=== PATIENT | female | born 2000 | race Caucasian/White ===

== ENCOUNTER 2022-10-28 03:01 | Emergency (ER) | payer OTHER ==
[2022-10-28 03:05] VITALS: BP 118/67
--- NOTE | 2022-10-28 03:38 | ERPHSYRPT ---
- History of Present Illness Time Seen by Provider: 10/28/22 03:34 Source: patient Exam Limitations: no limitations Patient Subjective Stated Complaint: family stated that pt's son had choked at home and pt was very scared. Triage Nursing Assessment: pt ambulated to room with assistance from family. pt is crying, and hyperventilating, and unable to speak. pt's family states she is 5 months . FHT 150 bpm, with movement heard and felt Physician History: Patient is a 22-year-old female currently 5 months presents to our ED experiencing a panic attack. Patient hyperventilating. Symptoms started after she observed her son choke on a watermelon. Patient's son became cyanotic. The family was able to dislodge the watermelon from the patient's throat. Patient is now back at his baseline. Patient has not one of our patients. Patient is at home with grand mother. Our patient eventually calm down. Patient's significant other at bedside. Patient denies chest pain or shortness of breath. No nausea vomiting or diaphoresis. heart tones 150-160. movement observed. Patient has no complaints regarding her . No vaginal discharge. No pelvic pain. Patient calm down and is now requesting discharge. Physical exam essentially unremarkable. Timing/Duration: today Severity: moderate Modifying Factors: Improves With: nothing Associated Symptoms: denies symptoms Home Medications: Sertraline HCl 50 mg [Zoloft 50 mg Tablet] 50 mg PO HS 10/28/22 [History] Hx Tetanus, Diphtheria Vaccination/Date Given: No Travel Risk - International Travel Have you traveled outside of the country in past 3 weeks: No - Coronavirus Screening Are you exhibiting any of the following symptoms?: No Close contact with a COVID-19 positive Pt in past 14-21 Days: No - Vaccine Status Have you recieved a Covid-19 vaccination: Yes [employer] Supervisor: [employer] - Review of Systems Constitutional: No Symptoms, No Fever, No Chills Eyes: No Symptoms Ears, Nose, & Throat: No Symptoms Respiratory: No Symptoms, No Cough, No Dyspnea Cardiac: No Symptoms, No Chest Pain, No Edema, No Syncope Abdominal/Gastrointestinal: No Symptoms, No Abdominal Pain, No Nausea, No Vomiting, No Diarrhea Genitourinary Symptoms: No Symptoms, No Dysuria Musculoskeletal: No Symptoms, No Back Pain, No Neck Pain Skin: No Symptoms, No Rash Neurological: No Symptoms, No Dizziness, No Focal Weakness, No Sensory Changes Psychological: No Symptoms Endocrine: No Symptoms Hematologic/Lymphatic: No Symptoms Immunological/Allergic: No Symptoms All Other Systems: Reviewed and Negative - Past Medical History Pertinent Past Medical History: No - Past Surgical History Past Surgical History: No - Social History Smoking Status: Never smoker Exposure to second hand smoke: No Drug Use: none Patient Lives Alone: No - Female History Hx Now: Yes Gestational Age: 26 - Nursing Vital Signs Nursing Vital Signs: Initial Vital Signs Temperature 98.0 F 10/28/22 03:02 Pulse Rate 83 10/28/22 03:02 Respiratory Rate 38 H 10/28/22 03:02 Blood Pressure 118/67 10/28/22 03:02 O2 Sat by Pulse Oximetry 99 10/28/22 03:02 Pain Scale Pain Intensity 0 - Physical Exam General Appearance: alert, other (Patient is tearful and hyperventilating.) Eye Exam: PERRL/EOMI, eyes nml inspection Ears, Nose, Throat Exam: normal ENT inspection, TMs normal, pharynx normal, moist mucous membranes Neck Exam: normal inspection, non-tender, supple, full range of motion Respiratory Exam: normal breath sounds, lungs clear, airway intact, No respiratory distress Cardiovascular Exam: regular rate/rhythm, normal heart sounds, normal peripheral pulses Gastrointestinal/Abdomen Exam: soft, normal bowel sounds, No tenderness, No mass Back Exam: normal inspection, normal range of motion, No CVA tenderness, No vertebral tenderness Extremity Exam: normal inspection, normal range of motion, pelvis stable Neurologic Exam: alert, oriented x 3, cooperative, normal mood/affect, nml cerebellar function, nml station & gait, sensation nml, No motor deficits Skin Exam: normal color, warm, dry, No rash Lymphatic Exam: No adenopathy SpO2 Interpretation: normal SpO2: 99 O2 Delivery: Room Air - Course Nursing assessment & vital signs reviewed: Yes - Progress Progress: improved Progress Note: Patient is a 22-year-old female currently 5 months presents to our ED experiencing a panic attack. Patient is very anxious at this time. Patient observed her younger child choked and became cyanotic. Patient's son choked on a watermelon. The watermelon was removed from patient's throat. She reports that he is now fine and with the grandmother. Patient significant other presented to our ED. Patient is now calm. Patient has no symptoms. No chest pain or shortness of breath. heart tones obtained. heart tones are 1 50-1 60. movement observed. We contacted patient's SUPERVISOR OF GUIDANCE AND TESTING physician to inform him that his patient had arrived to our ED. He agrees with our disposition at discharge. Complexity of problems addressed is low. Acute uncomplicated illness. No critical care time. Complexity of data reviewed and analyzed is none. Risk of complication and or morbidity/mortality of patient management is minimal. Symptoms resolved after some time and comfort measures. No medicinal management required. Patient states he is ready for discharge. Will discharge home at this time with her significant other. Patient agrees to follow-up with their primary care doctor within 48 hours for reevaluation. Vital stable. Discharge diagnosis is anxiety. Portions of this note were created with voice recognition technology. There may be grammatical, spelling, punctuation or sound alike errors 10/28/22 03:38 Patient has no primary care doctor on record. Service Dr. At this time is Dr. Smith. Patient given a referral to Dr. Smith. 10/28/22 03:43 Discussed with DrHeather: Dania Will see patient in: office Counseled pt/family regarding: diagnosis, need for follow-up - Departure Departure Disposition: Home Clinical Impression: Anxiety Condition: Stable Critical Care Time: No Referrals: DOCTOR,NO FAMILY [Primary Care Provider] - Follow up/PCP as directed SHAI SMITH MD [ACTIVE STAFF] - Follow up/PCP as directed Additional Instructions: Discharge/Care Plan DOMINICBRAYDEN BARRETT was seen on 10/28/22 in the Emergency Room. The patient was counseled regarding Diagnosis,Lab results, Imaging studies, need for follow up and when to return to the Emergency Room. Prescriptions given: Discharge Note I have spoken with the patient and/or caregivers. I have explained the patient's condition, diagnosis and treatment plan based on the information available to me at this time. I have answered the patient's and/or caregiver's questions and addressed any concerns. The patient and/or caregivers have as good understanding of the patient's diagnosis, condition and treatment plan as can be expected at this point. The vital signs have been stable. The patient's condition is stable and appropriate for discharge from the emergency department. The patient will pursue further outpatient evaluation with the primary care physician or other designated or consulting physician as outlined in the discharge instructions. The patient and/or caregivers are agreeable to this plan of care and follow-up instructions have been explained in detail. The patient and/or caregivers have received these instruction. The patient/and or caregivers are aware that any significant change in condition or worsening of symptoms should prompt an immediate return to this or the closest emergency department or call 911.
[2022-10-28 03:56] VITALS: PULSE 79; O2SAT 98
== END 2022-10-28 03:56 | disposition home or self-care (01) ==
LOC: ED 03:01
DX: F41.9 Anxiety disorder, unspecified (principal); F43.0 Acute stress reaction; Z79.899 Other long term (current) drug therapy; Z33.1 Pregnant state, incidental
CPT/HCPCS: 99281

== ENCOUNTER 2023-01-01 01:26 | Observation (INO) | payer OTHER ==
[2023-01-01 02:01] LABS: Appearance Clear (Clear); Bacteria Rare /HPF (None Seen); Bilirubin Negative (Negative); Blood Negative (Negative); Epithelial Cells Moderate /HPF (None Seen); Glucose, Urine Negative (Negative); Hyaline Casts NONE SEEN /LPF (0-2); Ketones 40 (Negative); Leukocyte Esterase Moderate (Negative); Nitrite Negative (Negative); Ph 6.5 (4.6-8.0); Protein,Urine Dip Trace (Negative); RBC 0-2 /HPF (0-5); WBC 21-50 /HPF (0-5)
[2023-01-01 02:08] LABS: ADD URINE CULTURE? YES (NO)
[2023-01-01 02:12] VITALS: O2SAT 98
[2023-01-01 02:12] LABS: Amphetamine,Urine NEGATIVE (NEGATIVE); Barbiturate,Urine NEGATIVE (NEGATIVE); Benzodiazepine,Urine NEGATIVE (NEGATIVE); Cocaine,Urine NEGATIVE (NEGATIVE); Methadone,Urine NEGATIVE (NEGATIVE); Opiate,Urine NEGATIVE (NEGATIVE); PCP,Urine NEGATIVE (NEGATIVE); THC,Urine NEGATIVE (NEGATIVE)
[2023-01-01 03:06] VITALS: BP 105/61; PULSE 71
== END 2023-01-01 02:51 | disposition home or self-care (01) ==
LOC: OB 01:26
PROVIDERS: ADMIT Obstetrics & Gynecology; ATTEND Obstetrics & Gynecology
DX: Z34.83 Encounter for supervision of other normal pregnancy, third trimester (principal); Z3A.34 34 weeks gestation of pregnancy
CPT/HCPCS: 80307; 81001; 87086; G0378; G0379

== ENCOUNTER 2023-02-02 08:30 | Observation (INO) | payer OTHER ==
[2023-02-02 09:13] VITALS: BP 140/77; PULSE 70; O2SAT 100
[2023-02-02] MEDS ORDERED: Lactated Ringers 1,000 ML IV ONE (09:50)
[2023-02-02 10:37] LABS: ADD URINE CULTURE? YES (NO); Appearance Clear (Clear); Bacteria None Seen /HPF (None Seen); Bilirubin Negative (Negative); Blood Negative (Negative); Epithelial Cells None Seen /HPF (None Seen); Glucose, Urine Negative (Negative); Hyaline Casts NONE SEEN /LPF (0-2); Ketones Negative (Negative); Leukocyte Esterase Negative (Negative); Nitrite Negative (Negative); Ph 6.5 (4.6-8.0); Protein,Urine Dip 100 (Negative); RBC 0-2 /HPF (0-5); Specific Gravity 1.015 (1.005-1.030); WBC 0-2 /HPF (0-5)
== END 2023-02-02 12:15 | disposition home or self-care (01) ==
LOC: OB 08:30
PROVIDERS: ADMIT Obstetrics & Gynecology; ATTEND Obstetrics & Gynecology
DX: Z34.83 Encounter for supervision of other normal pregnancy, third trimester (principal); Z3A.38 38 weeks gestation of pregnancy
CPT/HCPCS: 81001; 87086; G0378; G0379

== ENCOUNTER 2023-02-02 14:17 | Inpatient (IN) | payer OTHER ==
[~2023-02-02 14:17] MED LIST: PITOCIN 30 UNITS/ LR 500 ML 30 UNITS/500 ML PLAST..BAG IV SCH; ZOLOFT 50 MG TABLET PO SCH
[2023-02-02] MEDS ORDERED: PITOCIN 30 UNITS/ LR 500 ML 500 ML IV ONE (14:24)
[2023-02-02] MEDS ORDERED: TUCKS TP PRN (14:45)
[2023-02-02] MEDS ORDERED: CORTISONE 1% CREAM TP PRN (14:45)
[2023-02-02] MEDS ORDERED: Dulcolax 10 MG SUPP PR PRN (14:45)
[2023-02-02] MEDS ORDERED: Anucort-HC SUPPOSITORY PR PRN (14:45)
[2023-02-02] MEDS ORDERED: NORCO 5/325 MG PO PRN (14:45)
[2023-02-02] MEDS ORDERED: Mylicon 80MG PO PRN (14:45)
[2023-02-02] MEDS ORDERED: Dermoplast Spray TP PRN (14:45)
[2023-02-02] MEDS ORDERED: LANSINOH 40 GM TOP PRN (14:45)
[2023-02-02 15:16] LABS: Absolute Neutrophil Ct (ANC) 12.25 x10^3/uL (1.4-6.9); BASOPHIL % 0.1 % (0.0-0.4); Basophil (Absolute #) 0.02 x10^3/uL (0-0.4); Eosinophil (Absolute #) 0 x10^3/uL (0-0.5); Hematocrit 26.2 % (35-47); Hemoglobin 7.9 g/dL (12.0-16.0); IMMATURE GRAN # 0.08 x10^3u/L (0.00-0.03); IMMATURE GRAN % 0.6 % (0.00-0.4); Lymphocyte (Absolute #) 0.94 x10^3/uL (1.0-4.6); Lymphocytes % 6.8 % (24.0-44.0); Mean Cell Volume 87.3 fL (78-100); Mean Corpuscular Hemoglobin 26.3 pg (26-32); Mean Corpuscular Hgb Concent. 30.2 g/dL (32-36); Monocyte (Absolute #) 0.52 x10^3/uL (0.0-1.3); Monocytes % 3.8 % (0.0-12.0); Neutrophil % 88.7 % (36.0-66.0); Platelet Count 167 x10^3/uL (150-450); Red Cell Distribution Width 13.4 % (11.5-14.0); White Blood Count 13.8 x10^3/uL (4.0-10.5)
[2023-02-02] MEDS: MOTRIN 400 MG PO PRN ×2 (15:19→23:47)
[2023-02-02 16:06] LABS: ABO TYPING AB; Antibody Screen NEGATIVE (NEGATIVE); RH TYPING POSITIVE
[2023-02-02] MEDS: TYLENOL EXTRA STRENGTH 500 MG PO PRN (16:30)
[2023-02-02 16:36] LABS: Amphetamine,Urine NEGATIVE (NEGATIVE); Barbiturate,Urine NEGATIVE (NEGATIVE); Benzodiazepine,Urine NEGATIVE (NEGATIVE); Cocaine,Urine NEGATIVE (NEGATIVE); Methadone,Urine NEGATIVE (NEGATIVE); Opiate,Urine NEGATIVE (NEGATIVE); PCP,Urine NEGATIVE (NEGATIVE); THC,Urine NEGATIVE (NEGATIVE)
[2023-02-02] MEDS ORDERED: Sodium Chloride 0.9% 500 ML 500 ML IV SCH (17:00)
[2023-02-02 18:26] LABS: CROSS MATCH (PRBC) COMPATIBLE (COMPATIBLE)
[2023-02-02] MEDS ORDERED: AMMONIA AROMATIC IH ONE (20:55)
[2023-02-02] MEDS: Docusate Sodium 100 MG PO SCH (22:00)
[2023-02-02] MEDS ORDERED: Lactated Ringers 1,000 ML IV SCH (23:45)
[2023-02-03 00:51] LABS: Hematocrit 28.8 % (35-47); Hemoglobin 9.3 g/dL (12.0-16.0); Mean Corpuscular Hemoglobin 27.8 pg (26-32); Mean Corpuscular Hgb Concent. 32.3 g/dL (32-36); Mean Platelet Volume 11.9 fL (7.5-11.0); Platelet Count 155 x10^3/uL (150-450); Red Blood Count 3.35 x10^6/uL (4.1-5.4); Red Cell Distribution Width 13.4 % (11.5-14.0); White Blood Count 13.1 x10^3/uL (4.0-10.5)
[2023-02-03] MEDS: TYLENOL EXTRA STRENGTH 500 MG PO PRN ×2 (02:31→10:05)
[2023-02-03] MEDS: ZOLOFT 50 MG TABLET PO SCH (02:31)
[2023-02-03] MEDS: MOTRIN 400 MG PO PRN ×2 (07:21→15:08)
[2023-02-03 07:30] LABS: Absolute Neutrophil Ct (ANC) 9.09 x10^3/uL (1.4-6.9); BASOPHIL % 0.3 % (0.0-0.4); Basophil (Absolute #) 0.04 x10^3/uL (0-0.4); Eosinophil % 0.2 % (0.00-5.0); Eosinophil (Absolute #) 0.03 x10^3/uL (0-0.5); Hematocrit 26.9 % (35-47); Hemoglobin 8.5 g/dL (12.0-16.0); IMMATURE GRAN # 0.09 x10^3u/L (0.00-0.03); IMMATURE GRAN % 0.7 % (0.00-0.4); Lymphocyte (Absolute #) 3.14 x10^3/uL (1.0-4.6); Lymphocytes % 23.3 % (24.0-44.0); Mean Cell Volume 86.8 fL (78-100); Mean Corpuscular Hemoglobin 27.4 pg (26-32); Mean Corpuscular Hgb Concent. 31.6 g/dL (32-36); Mean Platelet Volume 11.6 fL (7.5-11.0); Monocyte (Absolute #) 1.06 x10^3/uL (0.0-1.3); Monocytes % 7.9 % (0.0-12.0); Neutrophil % 67.6 % (36.0-66.0); Platelet Count 157 x10^3/uL (150-450); Red Cell Distribution Width 13.6 % (11.5-14.0); White Blood Count 13.5 x10^3/uL (4.0-10.5)
[2023-02-03] MEDS ORDERED: AMMONIA AROMATIC IH ONE (07:30)
--- NOTE | 2023-02-03 07:55 | PCM.NOTE ---
Date and Time: 02/03/23 0754 Subjective Assessment: ppd 1 sp pt currently resting in bed and doing well able to ambulate and tolerate diet. pt received 2 units of prbc yesterday for anemia and being symptomatic with being lightheadedness and dizziness. currently feeling much better. vss afebrile abd; soft uterus; firm lochia; mild hgb; 8.5 a/p sp with precipitous delivery at home sp 2 units of prbc given yesterday pt feeling much better will dc home tomorrow should fu office 3 wks OBJECTIVE DATA Vital Signs: Vital Signs - 24 hr Temp Pulse Resp BP Pulse Ox 02/03/23 02:00 99.7 F 70 20 125/71 99 02/03/23 00:00 98.7 F 90 20 129/78 99 02/02/23 20:57 98.9 F 65 24 130/62 100 02/02/23 19:30 98.3 F 104 H 14 119/62 100 02/02/23 17:45 97.7 F 111 H 16 105/61 100 02/02/23 16:45 104 H 16 112/76 100 02/02/23 15:45 97.8 F 90 15 112/73 100 02/02/23 15:15 97.7 F 78 16 112/77 100 02/02/23 15:00 97.7 F 71 16 122/86 100 02/02/23 14:45 16 02/02/23 14:17 98.2 F 72 16 97/74 100 Pain Assessment - Last Documented Pain Intensity [Lower] 6 Pain Intensity 6 Pain Scale Used 0-10 Pain Scale Intake and Output: Intake & Output 01/31/23 02/01/23 02/02/23 02/03/23 11:59 11:59 11:59 11:59 Intake Total 1400 Output Total 251 Balance 1149 Weight 78.925 kg Lab Results: Lab Results-Last 24 Hours 02/02/23 02/02/23 02/02/23 Range/Units 14:45 15:07 15:07 WBC 13.8 H (4.0-10.5) x10^3/uL RBC 3.00 L (4.1-5.4) x10^6/uL Hgb 7.9 L (12.0-16.0) g/dL Hct 26.2 L (35-47) % MCV 87.3 (78-100) fL MCH 26.3 (26-32) pg MCHC 30.2 L (32-36) g/dL RDW 13.4 (11.5-14.0) % Plt Count 167 (150-450) x10^3/uL MPV 12.0 H (7.5-11.0) fL Gran % 88.7 H (36.0-66.0) % Immature Gran % (Auto) 0.6 H (0.00-0.4) % Nucleat RBC Rel Count 0.0 (0.00-0.1) % Eos # (Auto) 0 (0-0.5) x10^3/uL Immature Gran # (Auto) 0.08 H (0.00-0.03) x10^3u/L Absolute Lymphs (auto) 0.94 L (1.0-4.6) x10^3/uL Absolute Monos (auto) 0.52 (0.0-1.3) x10^3/uL Absolute Nucleated RBC 0.00 (0.00-0.01) x10^3u/L Lymphocytes % 6.8 L (24.0-44.0) % Monocytes % 3.8 (0.0-12.0) % Eosinophils % 0.0 (0.00-5.0) % Basophils % 0.1 (0.0-0.4) % Absolute Granulocytes 12.25 H (1.4-6.9) x10^3/uL Basophils # 0.02 (0-0.4) x10^3/uL Urine Opiates Level NEGATIVE (NEGATIVE) Ur Methadone NEGATIVE (NEGATIVE) Urine Barbiturates NEGATIVE (NEGATIVE) Ur Phencyclidine (PCP) NEGATIVE (NEGATIVE) Urine Amphetamine NEGATIVE (NEGATIVE) U Benzodiazepine Level NEGATIVE (NEGATIVE) Urine Cocaine NEGATIVE (NEGATIVE) Urine Marijuana (THC) NEGATIVE (NEGATIVE) ABO Group AB Rh Factor POSITIVE Antibody Screen NEGATIVE (NEGATIVE) Crossmatch (COMPATIBLE) 02/02/23 02/02/23 02/03/23 Range/Units 15:07 15:07 00:49 WBC 13.1 H (4.0-10.5) x10^3/uL RBC 3.35 L (4.1-5.4) x10^6/uL Hgb 9.3 L (12.0-16.0) g/dL Hct 28.8 L (35-47) % MCV 86.0 (78-100) fL MCH 27.8 (26-32) pg MCHC 32.3 (32-36) g/dL RDW 13.4 (11.5-14.0) % Plt Count 155 (150-450) x10^3/uL MPV 11.9 H (7.5-11.0) fL Gran % (36.0-66.0) % Immature Gran % (Auto) (0.00-0.4) % Nucleat RBC Rel Count (0.00-0.1) % Eos # (Auto) (0-0.5) x10^3/uL Immature Gran # (Auto) (0.00-0.03) x10^3u/L Absolute Lymphs (auto) (1.0-4.6) x10^3/uL Absolute Monos (auto) (0.0-1.3) x10^3/uL Absolute Nucleated RBC (0.00-0.01) x10^3u/L Lymphocytes % (24.0-44.0) % Monocytes % (0.0-12.0) % Eosinophils % (0.00-5.0) % Basophils % (0.0-0.4) % Absolute Granulocytes (1.4-6.9) x10^3/uL Basophils # (0-0.4) x10^3/uL Urine Opiates Level (NEGATIVE) Ur Methadone (NEGATIVE) Urine Barbiturates (NEGATIVE) Ur Phencyclidine (PCP) (NEGATIVE) Urine Amphetamine (NEGATIVE) U Benzodiazepine Level (NEGATIVE) Urine Cocaine (NEGATIVE) Urine Marijuana (THC) (NEGATIVE) ABO Group Rh Factor Antibody Screen (NEGATIVE) Crossmatch COMPATIBLE COMPATIBLE (COMPATIBLE) 02/03/23 Range/Units 07:20 WBC 13.5 H (4.0-10.5) x10^3/uL RBC 3.10 L (4.1-5.4) x10^6/uL Hgb 8.5 L (12.0-16.0) g/dL Hct 26.9 L (35-47) % MCV 86.8 (78-100) fL MCH 27.4 (26-32) pg MCHC 31.6 L (32-36) g/dL RDW 13.6 (11.5-14.0) % Plt Count 157 (150-450) x10^3/uL MPV 11.6 H (7.5-11.0) fL Gran % 67.6 H (36.0-66.0) % Immature Gran % (Auto) 0.7 H (0.00-0.4) % Nucleat RBC Rel Count 0.0 (0.00-0.1) % Eos # (Auto) 0.03 (0-0.5) x10^3/uL Immature Gran # (Auto) 0.09 H (0.00-0.03) x10^3u/L Absolute Lymphs (auto) 3.14 (1.0-4.6) x10^3/uL Absolute Monos (auto) 1.06 (0.0-1.3) x10^3/uL Absolute Nucleated RBC 0.00 (0.00-0.01) x10^3u/L Lymphocytes % 23.3 L (24.0-44.0) % Monocytes % 7.9 (0.0-12.0) % Eosinophils % 0.2 (0.00-5.0) % Basophils % 0.3 (0.0-0.4) % Absolute Granulocytes 9.09 H (1.4-6.9) x10^3/uL Basophils # 0.04 (0-0.4) x10^3/uL Urine Opiates Level (NEGATIVE) Ur Methadone (NEGATIVE) Urine Barbiturates (NEGATIVE) Ur Phencyclidine (PCP) (NEGATIVE) Urine Amphetamine (NEGATIVE) U Benzodiazepine Level (NEGATIVE) Urine Cocaine (NEGATIVE) Urine Marijuana (THC) (NEGATIVE) ABO Group Rh Factor Antibody Screen (NEGATIVE) Crossmatch (COMPATIBLE) Assessment/Plan (1) Vaginal delivery Current Visit: Yes Status: Acute Code(s): O80 - ENCOUNTER FOR FULL-TERM UNCOMPLICATED DELIVERY (2) Anemia Current Visit: Yes Status: Acute Qualifiers: Anemia type: unspecified type Qualified Code(s): D64.9 - Anemia, unspecified Code(s): D64.9 - ANEMIA, UNSPECIFIED
--- NOTE | 2023-02-03 08:00 | PCM.DS ---
Discharge Summary Date of Admission: 02/02/23 14:17 Admitting Physician: RUTH JAIN DO Consults: Consults on Case 02/02/23 16:30 Navigation ONCE Primary Care Provider: RUTH JAIN DO Allergies Allergies No Known Drug Allergies Allergy (Verified 02/03/23 02:55) Hospital Summary - Hospital Course Hospital Course: pt was admitted yesterday after having delivered at home with precipitous delivery at approximately 156 pm live baby girl delivered by her boyfriend. ambulance brought her in with placenta intact and subsequently delivered placenta at 1422 without complication. after delivery hgb was obtained and was noted being 7.9 and pt was symptomatic feeling lightheaded and dizzy upon getting up and was subsequently transfused 2 units of prbc. pt currently doing very well able to ambulate and tolerate diet. hgb at this time 8.5 after having been transfused with stable vitals. denies complaints at this time and will continue her zoloft upon discharge at 100mg. pt was advised to fu in office in 3 wks. all questions answered to her satisfaction. pt will continue iron supplementation. - Vitals & Intake/Output Vital Signs: Vital Signs Temperature 99.7 F 02/03/23 02:00 Pulse Rate 70 02/03/23 02:00 Respiratory Rate 20 02/03/23 02:00 Blood Pressure 125/71 02/03/23 02:00 O2 Sat by Pulse Oximetry 99 02/03/23 02:00 Intake & Output: Intake & Output 01/31/23 02/01/23 02/02/23 02/03/23 11:59 11:59 11:59 11:59 Intake Total 1400 Output Total 251 Balance 1149 Weight 78.925 kg - Lab Result Diagrams: 02/03/23 07:20 Lab Results-Last 24 Hrs: Lab Results-Last 24 Hours 02/02/23 02/02/23 02/02/23 Range/Units 14:45 15:07 15:07 WBC 13.8 H (4.0-10.5) x10^3/uL RBC 3.00 L (4.1-5.4) x10^6/uL Hgb 7.9 L (12.0-16.0) g/dL Hct 26.2 L (35-47) % MCV 87.3 (78-100) fL MCH 26.3 (26-32) pg MCHC 30.2 L (32-36) g/dL RDW 13.4 (11.5-14.0) % Plt Count 167 (150-450) x10^3/uL MPV 12.0 H (7.5-11.0) fL Gran % 88.7 H (36.0-66.0) % Immature Gran % (Auto) 0.6 H (0.00-0.4) % Nucleat RBC Rel Count 0.0 (0.00-0.1) % Eos # (Auto) 0 (0-0.5) x10^3/uL Immature Gran # (Auto) 0.08 H (0.00-0.03) x10^3u/L Absolute Lymphs (auto) 0.94 L (1.0-4.6) x10^3/uL Absolute Monos (auto) 0.52 (0.0-1.3) x10^3/uL Absolute Nucleated RBC 0.00 (0.00-0.01) x10^3u/L Lymphocytes % 6.8 L (24.0-44.0) % Monocytes % 3.8 (0.0-12.0) % Eosinophils % 0.0 (0.00-5.0) % Basophils % 0.1 (0.0-0.4) % Absolute Granulocytes 12.25 H (1.4-6.9) x10^3/uL Basophils # 0.02 (0-0.4) x10^3/uL Urine Opiates Level NEGATIVE (NEGATIVE) Ur Methadone NEGATIVE (NEGATIVE) Urine Barbiturates NEGATIVE (NEGATIVE) Ur Phencyclidine (PCP) NEGATIVE (NEGATIVE) Urine Amphetamine NEGATIVE (NEGATIVE) U Benzodiazepine Level NEGATIVE (NEGATIVE) Urine Cocaine NEGATIVE (NEGATIVE) Urine Marijuana (THC) NEGATIVE (NEGATIVE) ABO Group AB Rh Factor POSITIVE Antibody Screen NEGATIVE (NEGATIVE) Crossmatch (COMPATIBLE) 02/02/23 02/02/23 02/03/23 Range/Units 15:07 15:07 00:49 WBC 13.1 H (4.0-10.5) x10^3/uL RBC 3.35 L (4.1-5.4) x10^6/uL Hgb 9.3 L (12.0-16.0) g/dL Hct 28.8 L (35-47) % MCV 86.0 (78-100) fL MCH 27.8 (26-32) pg MCHC 32.3 (32-36) g/dL RDW 13.4 (11.5-14.0) % Plt Count 155 (150-450) x10^3/uL MPV 11.9 H (7.5-11.0) fL Gran % (36.0-66.0) % Immature Gran % (Auto) (0.00-0.4) % Nucleat RBC Rel Count (0.00-0.1) % Eos # (Auto) (0-0.5) x10^3/uL Immature Gran # (Auto) (0.00-0.03) x10^3u/L Absolute Lymphs (auto) (1.0-4.6) x10^3/uL Absolute Monos (auto) (0.0-1.3) x10^3/uL Absolute Nucleated RBC (0.00-0.01) x10^3u/L Lymphocytes % (24.0-44.0) % Monocytes % (0.0-12.0) % Eosinophils % (0.00-5.0) % Basophils % (0.0-0.4) % Absolute Granulocytes (1.4-6.9) x10^3/uL Basophils # (0-0.4) x10^3/uL Urine Opiates Level (NEGATIVE) Ur Methadone (NEGATIVE) Urine Barbiturates (NEGATIVE) Ur Phencyclidine (PCP) (NEGATIVE) Urine Amphetamine (NEGATIVE) U Benzodiazepine Level (NEGATIVE) Urine Cocaine (NEGATIVE) Urine Marijuana (THC) (NEGATIVE) ABO Group Rh Factor Antibody Screen (NEGATIVE) Crossmatch COMPATIBLE COMPATIBLE (COMPATIBLE) 02/03/23 Range/Units 07:20 WBC 13.5 H (4.0-10.5) x10^3/uL RBC 3.10 L (4.1-5.4) x10^6/uL Hgb 8.5 L (12.0-16.0) g/dL Hct 26.9 L (35-47) % MCV 86.8 (78-100) fL MCH 27.4 (26-32) pg MCHC 31.6 L (32-36) g/dL RDW 13.6 (11.5-14.0) % Plt Count 157 (150-450) x10^3/uL MPV 11.6 H (7.5-11.0) fL Gran % 67.6 H (36.0-66.0) % Immature Gran % (Auto) 0.7 H (0.00-0.4) % Nucleat RBC Rel Count 0.0 (0.00-0.1) % Eos # (Auto) 0.03 (0-0.5) x10^3/uL Immature Gran # (Auto) 0.09 H (0.00-0.03) x10^3u/L Absolute Lymphs (auto) 3.14 (1.0-4.6) x10^3/uL Absolute Monos (auto) 1.06 (0.0-1.3) x10^3/uL Absolute Nucleated RBC 0.00 (0.00-0.01) x10^3u/L Lymphocytes % 23.3 L (24.0-44.0) % Monocytes % 7.9 (0.0-12.0) % Eosinophils % 0.2 (0.00-5.0) % Basophils % 0.3 (0.0-0.4) % Absolute Granulocytes 9.09 H (1.4-6.9) x10^3/uL Basophils # 0.04 (0-0.4) x10^3/uL Urine Opiates Level (NEGATIVE) Ur Methadone (NEGATIVE) Urine Barbiturates (NEGATIVE) Ur Phencyclidine (PCP) (NEGATIVE) Urine Amphetamine (NEGATIVE) U Benzodiazepine Level (NEGATIVE) Urine Cocaine (NEGATIVE) Urine Marijuana (THC) (NEGATIVE) ABO Group Rh Factor Antibody Screen (NEGATIVE) Crossmatch (COMPATIBLE) Final Diagnosis/Problem List - Final Discharge Diagnosis/Problem (1) Vaginal delivery Current Visit: Yes Status: Acute Code(s): O80 - ENCOUNTER FOR FULL-TERM UNCOMPLICATED DELIVERY (2) Anemia Current Visit: Yes Status: Acute Code(s): D64.9 - ANEMIA, UNSPECIFIED - Discharge Disposition: Home, Self-Care Condition: Stable Prescriptions: New [place] Polysaccharides Complex [Ferrex 150] 150 mg PO DAILY #60 cap No Action Sertraline HCl 50 mg [Zoloft 50 mg Tablet] 100 mg PO HS Follow up with: RUTH JAIN DO [Primary Care Provider] - 3 weeks
[2023-02-03] MEDS: Docusate Sodium 100 MG PO SCH ×2 (09:53→22:00)
[2023-02-03] MEDS ORDERED: FERREX 150 PO SCH (10:00)
[2023-02-03] MEDS: Adacel Vial IM ONE ×2 (15:08→17:01)
[2023-02-03] MEDS: FERREX 150 PO SCH (21:28)
[2023-02-04 02:24] VITALS: O2SAT 98
[2023-02-04] MEDS: MOTRIN 400 MG PO PRN (06:25)
[2023-02-04] MEDS: Docusate Sodium 100 MG PO SCH (10:55)
[2023-02-04] MEDS: FERREX 150 PO SCH (10:57)
[2023-02-04] MEDS: ZOLOFT 50 MG TABLET PO SCH (10:57)
[2023-02-04] MEDS: TYLENOL EXTRA STRENGTH 500 MG PO PRN (11:05)
[2023-02-04 16:09] VITALS: BP 128/84; PULSE 76
== END 2023-02-04 18:30 | disposition home or self-care (01) | DRG 807 ==
LOC: OB 14:17 → UNDOADMIN 14:22
PROVIDERS: ADMIT Obstetrics & Gynecology; ATTEND Obstetrics & Gynecology
PROC: 10E0XZZ Delivery of Products of Conception, External Approach (ICD-10-PCS; principal; 2023-02-02)
DX: O80 Encounter for full-term uncomplicated delivery (principal); Z37.0 Single live birth; Z3A.38 38 weeks gestation of pregnancy; D64.9 Anemia, unspecified; Z20.828 Contact with and (suspected) exposure to other viral communicable diseases
CPT/HCPCS: 36415; 36430; 80307; 81001; 85025; 85027; 86850; 86900; 86901; 86922; 87086; 90472; 90715; G0378; G0379; J2590; P9016; A9270-GY